=== PATIENT | female | born 1950 | race Two or more races ===

== ENCOUNTER 2017-09-04 12:07 | Outpatient (CLI) | payer OTHER ==
[~2017-09-04 12:07] MED LIST: DOLOGESIC CAPLE1 TAB PO; INTESTINEX680 MG PO; LOSARTAN POTASS50 MG; ZANTAC150 MG PO; ZOFRAN4 MG PO
== END 2017-09-04 12:30 | disposition home or self-care (01) ==
LOC: LAB 12:07
DX: R50.9 Fever, unspecified (principal)

== ENCOUNTER 2017-10-08 10:58 | Outpatient (CLI) | payer OTHER | END 2017-10-08 11:03 | disposition home or self-care (01) | LOC: NUCLEAR 10:58 | DX: M81.0 Age-related osteoporosis without current pathological fracture (principal); M89.9 Disorder of bone, unspecified; M85.9 Disorder of bone density and structure, unspecified ==

== ENCOUNTER 2018-04-06 08:22 | Outpatient (CLI) | payer OTHER | END 2018-04-06 08:24 | disposition home or self-care (01) | LOC: SONOGRAMA 08:22 → MAMO-SONO 09:00 | DX: M19.011 Primary osteoarthritis, right shoulder (principal); M16.11 Unilateral primary osteoarthritis, right hip ==

== ENCOUNTER 2018-07-03 05:33 | Emergency (ER) | payer OTHER ==
[~2018-07-03] VITALS: Ht 154.9 cm; Wt 87.1 kg
== END 2018-07-03 13:02 | disposition home or self-care (01) ==
LOC: ER 05:33
DX: J45.909 Unspecified asthma, uncomplicated (principal)

== ENCOUNTER 2018-08-02 08:50 | Outpatient (CLI) | payer OTHER | END 2018-08-02 16:05 | disposition home or self-care (01) | LOC: RAD 501 08:50 | DX: J44.1 Chronic obstructive pulmonary disease with (acute) exacerbation (principal) ==

== ENCOUNTER 2018-09-30 08:24 | Outpatient (CLI) | payer OTHER | END 2018-09-30 08:28 | disposition home or self-care (01) | LOC: MAMO-SONO 08:24 | DX: Z12.31 Encounter for screening mammogram for malignant neoplasm of breast (principal); Z87.898 Personal history of other specified conditions; N60.11 Diffuse cystic mastopathy of right breast; N60.12 Diffuse cystic mastopathy of left breast; N63.10 Unspecified lump in the right breast, unspecified quadrant; N63.20 Unspecified lump in the left breast, unspecified quadrant; R92.1 Mammographic calcification found on diagnostic imaging of breast; E66.8 Other obesity; Z80.0 Family history of malignant neoplasm of digestive organs; M89.8X0 Other specified disorders of bone, multiple sites; D25.1 Intramural leiomyoma of uterus; N83.201 Unspecified ovarian cyst, right side; N83.202 Unspecified ovarian cyst, left side; N83.291 Other ovarian cyst, right side ==

== ENCOUNTER 2019-05-26 08:29 | Outpatient (CLI) | payer OTHER | END 2019-05-26 08:40 | disposition home or self-care (01) | LOC: SONOGRAMA 08:29 | DX: E04.2 Nontoxic multinodular goiter (principal); J45.998 Other asthma ==

== ENCOUNTER → 2019-07-24 | Emergency (ER) | payer OTHER ==
[~2019-07-24] VITALS: Ht 152.4 cm; Wt 85.3 kg
[~2019-07-24] MED LIST changes: +CANDESARTAN CILE8 MG; +LEVOTHYROXINE25 MCG; +LIPITOR 10 MG; +ZETIA10 MG
== END | disposition home or self-care (01) ==
LOC: ER 16:35
DX: I16.0 Hypertensive urgency (principal); I10 Essential (primary) hypertension

== ENCOUNTER 2019-09-19 08:13 | Outpatient (CLI) | payer OTHER | END 2019-09-19 08:52 | disposition home or self-care (01) | LOC: NUCLEAR 08:13 | DX: R06.09 Other forms of dyspnea (principal); I10 Essential (primary) hypertension; E78.49 Other hyperlipidemia; E03.8 Other specified hypothyroidism; R94.31 Abnormal electrocardiogram [ECG] [EKG] | CPT/HCPCS: 78452; 93017; A9500 ==

== ENCOUNTER 2019-10-24 11:02 | Outpatient (CLI) | payer OTHER | END 2019-10-24 11:06 | disposition home or self-care (01) | LOC: MAMO-SONO 11:02 | DX: Z12.31 Encounter for screening mammogram for malignant neoplasm of breast (principal); Z87.898 Personal history of other specified conditions; K70.0 Alcoholic fatty liver ==

== ENCOUNTER → 2020-01-30 | Outpatient (CLI) | payer OTHER | END | disposition home or self-care (01) | LOC: NUCLEAR 11:33 | PROVIDERS: ATTEND Obstetrics & Gynecology Gynecology | DX: M81.0 Age-related osteoporosis without current pathological fracture (principal) ==

== ENCOUNTER → 2020-02-09 | Outpatient (CLI) | payer OTHER | END | disposition home or self-care (01) | LOC: SONOGRAMA 09:15 | PROVIDERS: ATTEND Obstetrics & Gynecology Gynecology | DX: D25.1 Intramural leiomyoma of uterus (principal); N83.292 Other ovarian cyst, left side; N83.291 Other ovarian cyst, right side; N60.12 Diffuse cystic mastopathy of left breast; N60.11 Diffuse cystic mastopathy of right breast; N63.10 Unspecified lump in the right breast, unspecified quadrant; N63.20 Unspecified lump in the left breast, unspecified quadrant; R92.1 Mammographic calcification found on diagnostic imaging of breast; R92.0 Mammographic microcalcification found on diagnostic imaging of breast; E66.8 Other obesity; Z80.0 Family history of malignant neoplasm of digestive organs; E55.9 Vitamin D deficiency, unspecified; M89.8X8 Other specified disorders of bone, other site; M81.0 Age-related osteoporosis without current pathological fracture; N83.209 Unspecified ovarian cyst, unspecified side; N83.9 Noninflammatory disorder of ovary, fallopian tube and broad ligament, unspecified ==

== ENCOUNTER 2020-02-26 09:16 | Outpatient (CLI) | payer OTHER | END 2020-02-26 09:29 | disposition home or self-care (01) | LOC: SONOGRAMA 09:16 | PROVIDERS: ATTEND Surgery | DX: N60.11 Diffuse cystic mastopathy of right breast (principal); N60.12 Diffuse cystic mastopathy of left breast; N63.41 Unspecified lump in right breast, subareolar ==

== ENCOUNTER → 2020-09-04 | Emergency (ER) | payer OTHER ==
[~2020-09-04] VITALS: Ht 157.5 cm; Wt 88.5 kg
== END | disposition home or self-care (01) ==
LOC: ER 00:32
DX: I16.0 Hypertensive urgency (principal); I10 Essential (primary) hypertension

== ENCOUNTER 2020-10-30 17:00 | Emergency (ER) | payer OTHER ==
[~2020-10-30] VITALS: Ht 157.5 cm; Wt 88.0 kg
[2020-10-30] MEDS ORDERED: ALPRAZOLAM0.5 MG (17:10)
[2020-10-30] MEDS ORDERED: CANDESARTAN CILE8 M1 (17:10)
[2020-10-30] MEDS ORDERED: TOPROL XL25 M1 (17:11)
[2020-10-30] MEDS ORDERED: ZOLOFT25 MG (17:11)
== END 2020-10-30 21:03 | disposition home or self-care (01) ==
LOC: ER 17:00
DX: I16.1 Hypertensive emergency (principal); I10 Essential (primary) hypertension; F41.8 Other specified anxiety disorders

== ENCOUNTER 2021-01-17 07:45 | Outpatient (CLI) | payer OTHER ==
[~2021-01-17 07:45] MED LIST changes: +ALPRAZOLAM0.5 MG; +CANDESARTAN CILE8 M1; +TOPROL XL25 M1; +ZOLOFT25 MG
== END 2021-01-17 07:50 | disposition home or self-care (01) ==
LOC: RAD 07:45
PROVIDERS: ATTEND Ophthalmology
DX: Z01.818 Encounter for other preprocedural examination (principal)

== ENCOUNTER 2021-05-15 09:45 | Outpatient (CLI) | payer OTHER | END 2021-05-15 10:00 | disposition home or self-care (01) | LOC: PPH VACUNA 09:45 | PROVIDERS: ATTEND Emergency Medicine Pediatric Emergency Medicine | DX: Z23 Encounter for immunization (principal) ==

== ENCOUNTER 2021-11-18 08:00 | Outpatient (CLI) | payer OTHER | END 2021-11-18 08:30 | disposition home or self-care (01) | LOC: PPH VACUNA 08:00 | PROVIDERS: ATTEND Emergency Medicine Pediatric Emergency Medicine | DX: Z23 Encounter for immunization (principal) ==

== ENCOUNTER 2022-04-01 09:08 | Outpatient (CLI) | payer OTHER | END 2022-04-01 09:09 | disposition home or self-care (01) | LOC: NUCLEAR 09:08 | PROVIDERS: ATTEND Internal Medicine Cardiovascular Disease | DX: I20.9 Angina pectoris, unspecified (principal); I11.9 Hypertensive heart disease without heart failure; G45.9 Transient cerebral ischemic attack, unspecified; E78.5 Hyperlipidemia, unspecified ==

== ENCOUNTER 2022-09-18 14:31 | Outpatient (CLI) | payer OTHER | END 2022-09-18 14:38 | disposition home or self-care (01) | LOC: RAD 14:31 | PROVIDERS: ATTEND Internal Medicine Cardiovascular Disease | DX: M25.532 Pain in left wrist (principal) ==

== ENCOUNTER 2023-06-19 10:58 | Inpatient (IN) | payer OTHER ==
[~2023-06-19] VITALS: Ht 157.5 cm; Wt 86.2 kg
[2023-06-19] MEDS ORDERED: CRESTOR5 MG PO (12:01)
[2023-06-19] MEDS ORDERED: AMBIEN5 MG PO (12:01)
[2023-06-19] MEDS ORDERED: ATACAND16 MG PO (12:01)
[2023-06-19] MEDS ORDERED: LEVOTHYROXINE25 MCG PO (12:02)
[2023-06-19 13:06] LABS: HEMOGLOBIN 13.5 g/dL (12.0-15.00); MEAN CELL VOLUME 87.4 fL (80.00-100.00); MEAN CORPUSCULAR HEMOGLOBIN 29.5 pg (27.00-32.0); MEAN CORPUSCULAR HGB CONC 33.7 g/dl (32.0-36.0); PLATELET COUNT 203 K/uL (150-450); RED BLOOD COUNT 4.58 M/uL (4.00-6.00); RED CELL DISTRIBUTION WIDTH 14.7 % (11.5-14.5)
[2023-06-19 13:36] LABS: ALBUMIN 3.7 gm/dL (3.4-5.0); BILIRUBIN TOTAL 0.69 mg/dL (0.3-1.2); CALCIUM 9.1 mg/dL (8.5-10.1); CREATININE SERUM 0.78 mg/dL (0.55-1.02); GLOBULINA 4.2 G/DL (2.4-3.5); POTASSIUM 3.74 mEq/L (3.5-5.1); TOTAL PROTEIN 7.9 gm/dL (6.4-8.2)
[2023-06-19 14:10] LABS: URINE APPEARANCE Clear; URINE BILIRRUBIN Negative (NEGATIVE); URINE BLOOD Negative; URINE COLOR Yellow; URINE GLUCOSE Negative (NEGATIVE); URINE LEUKOCYTE Negative; URINE NITRATE Negative; URINE PROTEIN Negative (NEGATIVE); URINE UROBILINOGEN 0.2 E.U./dl
[2023-06-19 14:14] LABS: URINE BACTERIA 74.3 uL (0.0-1933); URINE EPITHELIAL CELLS 4.7 uL (0.0-38.8); URINE RBC 4.4 uL (0.0-20.8); URINE WBC 3.8 uL (0.0-23.2)
[2023-06-19 21:44] LABS: PROTHROMBIN TIME 10.5 SECONDS (9.0-11.5)
[2023-06-19 21:47] LABS: PARTIAL THROMBOPLASTIN TIME < 20.0 SECONDS (22.0-34.0)
[2023-06-20 10:25] LABS: ob POSITIVE (NEGATIVE)
[2023-06-22 06:55] LABS: CALCIUM 8.4 mg/dL (8.5-10.1); CREATININE SERUM 0.58 mg/dL (0.55-1.02); GFR 101.34; POTASSIUM 3.58 mEq/L (3.5-5.1)
== END 2023-06-22 13:56 | disposition home or self-care (01) | DRG 392 ==
LOC: ER 10:58 → MEDI 22:01
PROVIDERS: General Practice; ADMIT Specialist; ATTEND Specialist
PROC: BW21ZZZ Computerized Tomography (CT Scan) of Abdomen and Pelvis (ICD-10-PCS; principal; 2023-06-19)
DX: K52.89 Other specified noninfective gastroenteritis and colitis (principal); K92.1 Melena; E86.0 Dehydration; I10 Essential (primary) hypertension; E78.49 Other hyperlipidemia; E03.8 Other specified hypothyroidism; M81.0 Age-related osteoporosis without current pathological fracture; F32.A Depression, unspecified

== ENCOUNTER 2023-10-27 08:16 | Outpatient (CLI) | payer OTHER ==
[~2023-10-27 08:16] MED LIST changes: +AMBIEN5 MG PO; +ATACAND16 MG PO; +CRESTOR5 MG PO; +LEVOTHYROXINE25 MCG PO
== END 2023-10-27 08:24 | disposition home or self-care (01) ==
LOC: TOM 08:16
PROVIDERS: ATTEND Internal Medicine Gastroenterology
DX: K56.600 Partial intestinal obstruction, unspecified as to cause (principal)

== ENCOUNTER 2024-05-05 07:14 | Outpatient (CLI) | payer OTHER | END 2024-05-05 07:15 | disposition home or self-care (01) | LOC: NUCLEAR 07:14 | PROVIDERS: ATTEND Internal Medicine | DX: I20.9 Angina pectoris, unspecified (principal) | CPT/HCPCS: 78452; 93017; A9500 ==

== ENCOUNTER 2024-05-30 12:10 | Outpatient (CLI) | payer OTHER | END 2024-05-30 12:20 | disposition home or self-care (01) | LOC: MRI 12:10 | DX: M25.562 Pain in left knee (principal) | CPT/HCPCS: 73721 ==

== ENCOUNTER 2024-12-26 12:43 | Outpatient (CLI) | payer OTHER | END 2024-12-26 12:45 | disposition home or self-care (01) | LOC: RAD 12:43 | PROVIDERS: ATTEND Physical Medicine & Rehabilitation | DX: M54.6 Pain in thoracic spine (principal); M54.59 Other low back pain ==

== ENCOUNTER 2024-12-27 09:52 | Outpatient (CLI) | payer OTHER | END 2024-12-27 10:10 | disposition home or self-care (01) | LOC: MRI 09:52 | PROVIDERS: ATTEND Specialist | DX: J18.9 Pneumonia, unspecified organism (principal); R91.1 Solitary pulmonary nodule; G31.1 Senile degeneration of brain, not elsewhere classified; I67.2 Cerebral atherosclerosis; I67.9 Cerebrovascular disease, unspecified; I63.9 Cerebral infarction, unspecified | CPT/HCPCS: 70551 ==